=== PATIENT | male | born 1960 | race Caucasian/White ===

== ENCOUNTER 2019-01-21 12:29 | Emergency (ER) | payer MEDICARE, OTHER ==
[2019-01-21] MEDS ORDERED: methylPREDNISolone Sodium Succinate 125 MG/2 ML SDV IM ONE (14:11)
--- NOTE | 2019-01-21 14:16 | EDM.PDOC ---
ED HPI GENERAL MEDICAL PROBLEM - General Chief Complaint: Lower Extremity Injury/Pain Stated Complaint: LEFT ANKLE PAIN Time Seen by Provider: 01/21/19 14:06 Source of Information: Reports: Patient, Family, RN Notes Reviewed History Limitations: Reports: No Limitations - History of Present Illness INITIAL COMMENTS - FREE TEXT/NARRATIVE: 58-year-old gentleman presents to the emergency department today complaint of pain in his left ankle. He denies any trauma states the pain started last night he does have a history of gout which usually goes to the left ankle he states this feels like a normal gout attack he is here on vacation Left Ankle Pain Score (Numeric/FACES): 8 - Related Data Allergies Allergy/AdvReac Type Severity Reaction Status Date / Time No Known Allergies Allergy Verified 01/21/19 13:58 Home Meds: Home Meds Furosemide [Lasix] 20 mg PO DAILY 01/21/19 [History] Sertraline [Zoloft] 100 mg PO BEDTIME 01/21/19 [History] Past Medical History HEENT History: Reports: Impaired Vision Cardiovascular History: Reports: High Cholesterol, Hypertension, Other (See Below) Gastrointestinal History: Reports: Chronic Constipation, GERD Genitourinary History: Reports: Retention, Urinary Musculoskeletal History: Reports: Arthritis, Back Pain, Chronic, Gout Neurological History: Reports: CVA, TIA Psychiatric History: Reports: Depression Endocrine/Metabolic History: Reports: Diabetes, Type II, Obesity/BMI 30+ Hematologic History: Reports: Blood Transfusion(s) Immunologic History: Reports: Solid Organ Transplant - Past Surgical History Head Surgeries/Procedures: Reports: None HEENT Surgical History: Reports: Tonsillectomy Cardiovascular Surgical History: Reports: Other (See Below) Other Cardiovascular Surgeries/Procedures: had heart transplan in 2006 GI Surgical History: Reports: Cholecystectomy Endocrine Surgical History: Reports: None Neurological Surgical History: Reports: None Musculoskeletal Surgical History: Reports: None Dermatological Surgical History: Reports: None Social & Family History - Tobacco Use Smoking Status *Q: Former Smoker Used Tobacco, but Quit: Yes Month/Year Tobacco Last Used: 1987 - Caffeine Use Caffeine Use: Reports: Coffee - Recreational Drug Use Recreational Drug Use: No Review of Systems - Review of Systems Review Of Systems: See Below Constitutional: Reports: No Symptoms Musculoskeletal: Reports: Joint Pain (Ankle pain) ED EXAM, GENERAL - Physical Exam Exam: See Below Free Text/Narrative:: Examination left ankle I do not appreciate any erythema there is no edema it is exquisitely tender to the touch around the joint circumference pedal pulses +2 Exam Limited By: No Limitations General Appearance: Alert, WD/WN, No Apparent Distress Course - Vital Signs Last Recorded V/S: Last Vital Signs Temp 98.9 F 01/21/19 14:00 Pulse 101 H 01/21/19 14:00 Resp 17 01/21/19 14:00 BP 116/82 01/21/19 14:00 Pulse Ox 94 L 01/21/19 14:00 - Orders/Labs/Meds Orders: Active Orders 24 hr Category Date Time Status methylPREDNISolone Sod Succ [Solu-MEDROL] Med 01/21/19 14:11 Once 125 mg IM ONETIME ONE Departure - Departure Time of Disposition: 14:15 Disposition: Home, Self-Care 01 Condition: Fair Clinical Impression: Gout attack Qualifiers: Gout site: ankle Gout etiology: unspecified cause Laterality: left Qualified Code(s): M10.9 - Gout, unspecified - Discharge Information Referrals: PCP,None [Primary Care Provider] - Additional Instructions: Use prednisone once a day for the next 5 days start tomorrow, Please followup with your primary care provider in 3-5 days if not better, please call return to the emergency department with worsening of symptoms. - My Orders Last 24 Hours: My Active Orders 01/21/19 14:11 methylPREDNISolone Sod Succ [Solu-MEDROL] 125 mg IM ONETIME ONE - Assessment/Plan Last 24 Hours: My Active Orders 01/21/19 14:11 methylPREDNISolone Sod Succ [Solu-MEDROL] 125 mg IM ONETIME ONE Plan: Assessment Acuity = acute Site and laterality = gout attack Etiology = unknown etiology Manifestations = none Location of injury = Home Lab values = none Plan He has had good luck with prednisone in the past therefore he is given 125 mg Solu-Medrol IM 1 followed by 20 mg once a day for 5 days follow-up primary care in 3-5 days if no improvement. This note was dictated using [employer] voice recognition software please call with any questions on syntax or grammar.
== END 2019-01-21 14:26 | disposition home or self-care (01) ==
LOC: JP.ED 12:29
DX: M10.9 Gout, unspecified (principal); I10 Essential (primary) hypertension; M19.90 Unspecified osteoarthritis, unspecified site; Z86.73 Personal history of transient ischemic attack (TIA), and cerebral infarction without residual deficits; E11.9 Type 2 diabetes mellitus without complications; E66.9 Obesity, unspecified; F32.9 Major depressive disorder, single episode, unspecified; Z98.890 Other specified postprocedural states; Z90.49 Acquired absence of other specified parts of digestive tract; Z79.899 Other long term (current) drug therapy; Z87.891 Personal history of nicotine dependence
CPT/HCPCS: 96372; 99283; J2930